=== PATIENT | female | born 1965 | race Caucasian/White ===

== ENCOUNTER 2018-02-03 14:26 | Emergency (ER) | payer MEDICAID ==
[~2018-02-03] VITALS: Ht 157.5 cm; Wt 50.3 kg
[2018-02-03 14:33] VITALS: BP 136/88
--- NOTE | 2018-02-03 14:48 | NUR ---
PATIENT PRESENTS TO ED WITH PT WHILE PAYING REGISTRATION ON A [employer] , PT HIT HEAD ON KIOSK SHE WAS STANDING UP----1.5CM LAC LEFT FOREHEAD HAIRLINE AREA DENIES KO, NO N/V SKIN IS PINK/WARM/DRY; AAOX4 WITH EVEN AND STEADY GAIT; LUNGS CLEAR BL; HR EVEN AND REGULAR; PT DENIES ANY FEVER, CP, SOB, OR COUGH AT THIS TIME; PATIENT STATES PAIN OF 6/10 AT THIS TIME; VSS; PATIENT POSITIONED FOR COMFORT; HOB ELEVATED; BEDRAILS UP X2; BED DOWN. ER MD MADE AWARE OF PT STATUS.
[2018-02-03] MEDS ORDERED: LIDOCAINE MPF 1% - **ER/OR** 10 MG/ML VIAL INJ ONE (15:20)
--- NOTE | 2018-02-03 15:53 | NUR ---
PT. RESTING COMFORTABLY IN BED, RR EVEN AND UNLABORED. VSS. WILL CONTINUE TO MONITOR.
--- NOTE | 2018-02-03 16:02 | NUR ---
ER MD SHIPLEY IN ROOM DOING LACERATION REPAIR.
[2018-02-03 16:12] VITALS: BP 130/82
--- NOTE | 2018-02-03 16:12 | NUR ---
Patient discharged with v/s stable. Written and verbal after care instructions given and explained. Patient verbalized understanding. Ambulatory with steady gait. All questions addressed prior to discharge. Advised to follow up with PMD.
== END 2018-02-03 16:12 | disposition home or self-care (01) ==
LOC: MED 14:26
DX: S01.01XA Laceration without foreign body of scalp, initial encounter (principal); S09.90XA Unspecified injury of head, initial encounter; F17.210 Nicotine dependence, cigarettes, uncomplicated; W22.8XXA Striking against or struck by other objects, initial encounter; Y93.89 Activity, other specified; Y99.8 Other external cause status; Y92.89 Other specified places as the place of occurrence of the external cause
CPT/HCPCS: 12001; 90471; 90715; 99283; J2001